=== PATIENT | male | born 1970 | race Caucasian/White ===

== ENCOUNTER 2024-08-17 20:25 | Emergency (ER) | payer OTHER ==
[~2024-08-17] VITALS: Ht 175.3 cm; Wt 82.5 kg
[2024-08-17] MEDS ORDERED: CEPH500 PO (21:17)
== END 2024-08-17 21:21 | disposition home or self-care (01) ==
LOC: ER 20:25
DX: S90.862A Insect bite (nonvenomous), left foot, initial encounter (principal); Z79.2 Long term (current) use of antibiotics; W57.XXXA Bitten or stung by nonvenomous insect and other nonvenomous arthropods, initial encounter
CPT/HCPCS: 99281